=== PATIENT | female | born 2000 | race Caucasian/White ===

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

== ENCOUNTER 2018-01-24 | Emergency (ER) | payer OTHER ==
[~2018-01-24] VITALS: Ht 154.9 cm; Wt 67.8 kg
[2018-01-24 00:08] VITALS: Ht 154.9 cm; Wt 67.8 kg
[2018-01-24 00:47] LABS: BASOPHIL % 0.2 % (0-2); PLATELET COUNT 215 x10^3mcL (130-400); RED CELL DISTRIBUTION WIDTH 14.1 % (11.5-14.5)
[2018-01-24 00:54] LABS: CALCIUM 8.7 mg/dL (8.5-10.1); CARBON DIOXIDE 29.1 mmol/L (21-32); CHLORIDE SERUM 104 mmol/L (98-107); CREATININE SERUM 0.8 mg/dL (0.6-1.0); GFR1 > 60 mL/min; GLUCOSE SERUM 96 mg/dL (74-106); POTASSIUM SERUM 3.4 mmol/L (3.5-5.1); SODIUM SERUM 136 mmol/L (136-145)
[2018-01-24 00:59] LABS: ALKALINE PHOSPHATASE 68 U/L (46-116); ALT/SGPT 53 U/L (14-59); AST/SGOT 27 U/L (15-37); BILIRUBIN TOTAL 0.26 mg/dL (0.20-1.00)
[2018-01-24 01:01] LABS: ALBUMIN 3.1 g/dL (3.4-5.0); TOTAL PROTEIN, SERUM 8.8 g/dL (6.4-8.2)
[2018-01-24 01:58] VITALS: BP 113/50
== END 2018-01-24 01:58 | disposition home or self-care (01) ==
LOC: ED
PROVIDERS: Emergency Medicine
DX: M94.0 Chondrocostal junction syndrome [Tietze] (principal); M06.9 Rheumatoid arthritis, unspecified
CPT/HCPCS: 85378; J1885; Q0092

== ENCOUNTER 2018-02-21 14:42 | Emergency (ER) | payer OTHER ==
[~2018-02-21] VITALS: Ht 154.9 cm; Wt 64.4 kg
[2018-02-21 17:29] LABS: PLATELET COUNT 243 x10^3mcL (130-400); RED CELL DISTRIBUTION WIDTH 13.8 % (11.5-14.5)
[2018-02-21 17:37] LABS: CALCIUM 8.7 mg/dL (8.5-10.1); CARBON DIOXIDE 25.4 mmol/L (21-32); CHLORIDE SERUM 102 mmol/L (98-107); CREATININE SERUM 0.7 mg/dL (0.6-1.0); GFR1 > 60 mL/min; GLUCOSE SERUM 114 mg/dL (74-106); POTASSIUM SERUM 3.4 mmol/L (3.5-5.1); SODIUM SERUM 135 mmol/L (136-145)
[2018-02-21 18:19] LABS: BAND NEUTROPHIL 14 % (0-10); BASOPHIL 0 % (0-2); MONOCYTE 2 % (0-7); PLATELET MORPHOLOGY PLATELETS NORMAL; SEGMENTED NEUTROPHILS 77 % (37-75); rbc morphology (normal/abnorm) NORMAL (NORMAL)
[2018-02-21 19:05] VITALS: BP 121/78
== END 2018-02-21 19:05 | disposition home or self-care (01) ==
LOC: ED 14:42
PROVIDERS: Emergency Medicine
DX: K11.20 Sialoadenitis, unspecified (principal); R55 Syncope and collapse; M06.9 Rheumatoid arthritis, unspecified
CPT/HCPCS: J0780; J1885

== ENCOUNTER 2018-06-11 03:05 | Emergency (ER) | payer OTHER ==
[~2018-06-11] VITALS: Ht 154.9 cm; Wt 64.6 kg
[2018-06-11 03:12] VITALS: Ht 154.9 cm; Wt 64.6 kg
[2018-06-11] MEDS ORDERED: NATURE'S BLEND F1 MG PO (06:47)
[2018-06-11] MEDS ORDERED: PREDNISONE20 MG PO (06:47)
[2018-06-11] MEDS ORDERED: METHOTREXATE2.5 M2 (06:48)
[2018-06-11] MEDS ORDERED: ENBREL25 MG/0.5 (06:49)
[2018-06-11 16:29] VITALS: BP 126/65
== END 2018-06-11 16:29 | disposition home or self-care (01) ==
LOC: ED 03:05 → DU 07:12 → ED 16:29
DX: T78.3XXA Angioneurotic edema, initial encounter (principal); M06.9 Rheumatoid arthritis, unspecified
CPT/HCPCS: J1100; J1200; J1885; J2270; J2930; J3490; J7030; Q0092

== ENCOUNTER 2018-10-01 03:36 | Emergency (ER) | payer OTHER ==
[~2018-10-01] VITALS: Ht 157.5 cm; Wt 61.2 kg
[~2018-10-01 03:36] MED LIST: ENBREL25 MG/0.5; METHOTREXATE2.5 M2; NATURE'S BLEND F1 MG PO; PREDNISONE20 MG PO
[2018-10-01 03:41] VITALS: Ht 157.5 cm; Wt 61.2 kg
[2018-10-01 04:14] LABS: BASOPHIL % 0 % (0-2); PLATELET COUNT 169 x10^3mcL (130-400); RED CELL DISTRIBUTION WIDTH 13.7 % (11.5-14.5)
[2018-10-01 04:22] LABS: CALCIUM 8.3 mg/dL (8.5-10.1); CARBON DIOXIDE 23.9 mmol/L (21-32); CHLORIDE SERUM 103 mmol/L (98-107); CREATININE SERUM 0.7 mg/dL (0.6-1.0); GFR1 > 60 mL/min; GLUCOSE SERUM 136 mg/dL (74-106); POTASSIUM SERUM 3.7 mmol/L (3.5-5.1); SODIUM SERUM 135 mmol/L (136-145)
[2018-10-01 04:27] LABS: ALBUMIN 2.9 g/dL (3.4-5.0); ALKALINE PHOSPHATASE 45 U/L (46-116); ALT/SGPT 39 U/L (14-59); AMYLASE 53 U/L (25-115); AST/SGOT 29 U/L (15-37); BILIRUBIN TOTAL 0.21 mg/dL (0.20-1.00); LIPASE 75 IU/L (73-393); TOTAL PROTEIN, SERUM 7.9 g/dL (6.4-8.2)
[2018-10-01 04:45] LABS: microscopic required? YES; urine erythrocyte 2+ (NEGATIVE)
[2018-10-01 06:11] VITALS: BP 135/76
== END 2018-10-01 06:11 | disposition home or self-care (01) ==
LOC: ED 03:36
PROVIDERS: Emergency Medicine
DX: K59.00 Constipation, unspecified (principal); M06.862 Other specified rheumatoid arthritis, left knee; Z79.899 Other long term (current) drug therapy
CPT/HCPCS: J1885; J2405; J3010

== ENCOUNTER 2018-10-13 06:08 | Emergency (ER) | payer OTHER ==
[~2018-10-13] VITALS: Ht 157.5 cm; Wt 61.2 kg
[2018-10-13 06:09] VITALS: Ht 157.5 cm; Wt 61.2 kg
[2018-10-13 07:01] LABS: BASOPHIL % 0.1 % (0-2); PLATELET COUNT 164 x10^3mcL (130-400); RED CELL DISTRIBUTION WIDTH 13.7 % (11.5-14.5)
[2018-10-13 07:09] LABS: CALCIUM 8.3 mg/dL (8.5-10.1); CARBON DIOXIDE 21.4 mmol/L (21-32); CHLORIDE SERUM 109 mmol/L (98-107); CREATININE SERUM 0.6 mg/dL (0.6-1.0); GFR1 > 60 mL/min; GLUCOSE SERUM 128 mg/dL (74-106); POTASSIUM SERUM 3.7 mmol/L (3.5-5.1); SODIUM SERUM 140 mmol/L (136-145)
[2018-10-13 07:14] LABS: ALKALINE PHOSPHATASE 39 U/L (46-116); ALT/SGPT 26 U/L (14-59); AST/SGOT 14 U/L (15-37); BILIRUBIN TOTAL 0.24 mg/dL (0.20-1.00); TOTAL PROTEIN, SERUM 7.7 g/dL (6.4-8.2)
[2018-10-13 07:15] LABS: ALBUMIN 2.7 g/dL (3.4-5.0)
[2018-10-13 07:50] LABS: UA SPECIFIC GRAVITY >=1.030 (1.005-1.035); microscopic required? YES; urine erythrocyte 2+ (NEGATIVE)
[2018-10-13 08:26] VITALS: BP 128/89
== END 2018-10-13 08:26 | disposition home or self-care (01) ==
LOC: ED 06:08
PROVIDERS: Emergency Medicine
DX: M32.9 Systemic lupus erythematosus, unspecified (principal); M25.531 Pain in right wrist; M25.532 Pain in left wrist; M25.511 Pain in right shoulder; M25.512 Pain in left shoulder; M25.562 Pain in left knee; M25.561 Pain in right knee; M06.9 Rheumatoid arthritis, unspecified
CPT/HCPCS: J1885; J2270; J2405; J2930; J7030; Q0092